=== PATIENT | male | born 1965 | race Caucasian/White ===

== ENCOUNTER 2018-05-23 08:31 | Day surgery (SDC) | payer OTHER, BC ==
[2018-05-23] MEDS ORDERED: MIDAZOLAM 1 MG/ML 2 ML INJ ×2 (11:18)
[2018-05-23] MEDS ORDERED: FENTAnyl 50 MCG/ML VIAL (11:18)
== END 2018-05-23 11:21 | disposition home or self-care (01) ==
LOC: GIL 08:31
DX: Z12.11 Encounter for screening for malignant neoplasm of colon (principal); K64.8 Other hemorrhoids
CPT/HCPCS: 45378